=== PATIENT | female | born 1995 | race Caucasian/White ===

== ENCOUNTER 2016-06-14 01:29 | Observation (INO) | payer MEDICAID ==
[2016-06-14] MEDS ORDERED: PRENA1 CHEW TA1.4 M1 (01:50)
== END 2016-06-14 07:00 ==
LOC: LDR 01:29
PROVIDERS: ADMIT Obstetrics & Gynecology
DX: O9A.213 Injury, poisoning and certain other consequences of external causes complicating pregnancy, third trimester (principal); Z3A.30 30 weeks gestation of pregnancy; Z88.2 Allergy status to sulfonamides; Z79.899 Other long term (current) drug therapy